=== PATIENT | male | born 1995 | race Caucasian/White ===

== ENCOUNTER 2021-05-20 23:46 | Emergency (ER) | payer SELFPAY | END 2021-05-21 02:38 | disposition home or self-care (01) | LOC: FER 23:46 | DX: S51.851A Open bite of right forearm, initial encounter (principal); F17.200 Nicotine dependence, unspecified, uncomplicated; Z23 Encounter for immunization; W54.0XXA Bitten by dog, initial encounter; Y92.830 Public park as the place of occurrence of the external cause ==